=== PATIENT | male | born 1960 | race Caucasian/White ===

== ENCOUNTER 2018-11-01 10:16 | Emergency (ER) | payer OTHER ==
[2018-11-01] MEDS ORDERED: Tetracaine 0.5% OPHTH SOLN/PF 4 ML BOT ONE (10:25)
== END 2018-11-01 10:50 | disposition home or self-care (01) ==
LOC: MADERS 10:16
DX: H57.89 Other specified disorders of eye and adnexa (principal)
CPT/HCPCS: 99283